=== PATIENT | female | born 2000 | race Caucasian/White ===

== ENCOUNTER → 2023-05-24 16:23 | Outpatient (REF) | payer OTHER, SELFPAY | LOC: PNTC 16:23 | PROVIDERS: ATTENDING PHYSICIAN Obstetrics & Gynecology | DX: O99.210 Obesity complicating pregnancy, unspecified trimester (principal); O98.519 Other viral diseases complicating pregnancy, unspecified trimester; U07.1 COVID-19 | CPT/HCPCS: 76811 ==

== ENCOUNTER → 2023-06-07 08:15 | Outpatient (REF) | payer OTHER, SELFPAY | LOC: PNTC 08:15 | PROVIDERS: ATTENDING PHYSICIAN Obstetrics & Gynecology | DX: O28.3 Abnormal ultrasonic finding on antenatal screening of mother (principal) | CPT/HCPCS: 76815 ==

== ENCOUNTER → 2023-07-05 15:21 | Outpatient (REF) | payer OTHER, SELFPAY | LOC: PNTC 15:21 | PROVIDERS: ATTENDING PHYSICIAN Obstetrics & Gynecology | DX: O98.519 Other viral diseases complicating pregnancy, unspecified trimester (principal); O99.210 Obesity complicating pregnancy, unspecified trimester | CPT/HCPCS: 76816 ==

== ENCOUNTER → 2023-08-16 16:21 | Outpatient (REF) | payer OTHER, SELFPAY | LOC: PNTC 16:21 | PROVIDERS: ATTENDING PHYSICIAN Obstetrics & Gynecology | DX: O99.210 Obesity complicating pregnancy, unspecified trimester (principal); O98.519 Other viral diseases complicating pregnancy, unspecified trimester; U07.1 COVID-19 | CPT/HCPCS: 76816 ==

== ENCOUNTER 2023-10-05 06:29 | Inpatient (IN) | payer OTHER, SELFPAY ==
[2023-10-05 06:51] VITALS: BP 122/79; BMI 38.3
[2023-10-05 07:12] LABS: Hematocrit 32.8 % (37.0-47.0); Hemoglobin 10.7 g/dL (12.0-16.0); Mean Corp Hgb Conc. 32.6 g/dL (33.0-37.0); Mean Corpuscular Hgb 24.1 pg (27.0-31.0); Mean Corpuscular Volume 73.9 fL (81.0-99.0); Mean Platelet Volume 9.7 fL (7.4-10.4); Platelet Count 186 10^3/uL (130-400); Red Blood Cell Count 4.44 10^6/uL (4.20-5.40); Red Cell Dist. Width 14.4 % (11.5-14.5); White Blood Cell Count 9.5 10^3/uL (4.8-10.8)
[2023-10-05] MEDS: TYLENOL 1000 MG PO (07:37)
[2023-10-05] MEDS: ANCEF 10 IV (07:38)
[2023-10-05] MEDS: BICITRA 30 ML PO (07:39)
[2023-10-05] MEDS: LR 1000 IV (07:39)
[2023-10-05] MEDS: PITOCIN 30 UNITS/NSS 500 ML IV (10:40)
[2023-10-05] MEDS: BENADRYL 25 MG PO (10:40)
[2023-10-05] MEDS: BENADRYL 25 MG IV (11:33)
[2023-10-05] MEDS: TORADOL 15 MG IV ×2 (13:42→20:13)
[2023-10-06] MEDS: TORADOL 15 MG IV ×4 (02:08→20:12)
[2023-10-06 05:07] LABS: Hematocrit 30.1 % (37.0-47.0); Hemoglobin 9.5 g/dL (12.0-16.0); Mean Corp Hgb Conc. 31.6 g/dL (33.0-37.0); Mean Corpuscular Hgb 23.8 pg (27.0-31.0); Mean Corpuscular Volume 75.4 fL (81.0-99.0); Platelet Count 168 10^3/uL (130-400); Red Blood Cell Count 3.99 10^6/uL (4.20-5.40); Red Cell Dist. Width 14.2 % (11.5-14.5); White Blood Cell Count 14.1 10^3/uL (4.8-10.8)
[2023-10-06] MEDS: PRENATAL PLUS 1 TABLET PO (08:03)
--- NOTE | 2023-10-06 09:06 | W.PN.ANS.POP ---
Anesthesia Post Operative
- Anesthesia Post Op Note
Vital Signs Stable-See Nursing Note: Yes
Airway Patent: Yes
Adequate Pain Control: Yes
Change in Mental Status: No
Current Postoperative Nausea & Vomiting: No
Anesthesia Complications: No
General Anesthetic Recall: No
Unplanned Admission: No
Post Op Hydration Adequate: Yes
[2023-10-07] MEDS: TYLENOL 650 MG PO ×3 (01:06→09:37)
[2023-10-07] MEDS: PRENATAL PLUS 1 TABLET PO (08:17)
[2023-10-07] MEDS: SENOKOT-S 1 TABLET PO (09:37)
[2023-10-07] MEDS: FEOSOL 325 MG PO (13:00)
[2023-10-07] MEDS: MOTRIN 600 MG PO ×2 (13:00→19:47)
[2023-10-08] MEDS: MOTRIN 600 MG PO (02:04)
[2023-10-08] MEDS: MYLICON 80 MG PO (08:50)
[2023-10-08] MEDS: FEOSOL 325 MG PO (08:50)
[2023-10-08] MEDS: PRENATAL PLUS 1 TABLET PO (08:50)
--- NOTE | 2023-10-08 08:56 | W.DS.TRANS ---
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
-
Discharge Instructions:
Discharge Diagnosis/Procedures section
Instructions:
Stand-Alone Forms:
Changes to Home Medications: No
Discharge Medications:
DC Medications w/original date entered in [facility]
prenat.vits,don,ytf-evvv-igkvg 1 tab PO DAILY Supplement 10/05/23
acetaminophen 325 mg tablet 650 mg (2 x 325 mg) PO Q4HPRN PRN mild pain #0 tabs 10/08/23
ferrous sulfate 325 mg (65 mg iron) tablet (FeroSul) 325 mg PO DAILY #0 tabs 10/08/23
ibuprofen 600 mg tablet 600 mg PO Q6HPRN PRN cramps #30 tabs 10/08/23
sennosides 8.6 mg-docusate sodium 50 mg tablet (Stool Softener-Stimulant Laxative) 1 tab PO DAILYPRN PRN constipation #0 tabs 10/08/23
simethicone 80 mg chewable tablet 80 mg PO TIDPRN PRN flatulence #0 tabs 10/08/23
Home Medication Changes
Pending Results: Yes
Additional Pending Results:
pathology on placenta
Total time spent discharging patient (in min): 20
[2023-10-09 11:12] LABS: Syphilis/T. pallidum Ab Reflex Negative (Negative)
== END 2023-10-08 12:52 | disposition home or self-care (01) | DRG 788 ==
LOC: LDRP 06:29
PROVIDERS: ADMITTING PHYSICIAN Obstetrics & Gynecology; FAMILY PHYSICIAN Family Medicine
PROC: 10D00Z1 Extraction of Products of Conception, Low, Open Approach (ICD-10-PCS; 2023-10-05)
PROC: 6A550ZT Pheresis of Cord Blood Stem Cells, Single (ICD-10-PCS; 2023-10-05)
DX: O32.1XX0 Maternal care for breech presentation, not applicable or unspecified (principal); Z3A.39 39 weeks gestation of pregnancy; Z37.0 Single live birth; O69.81X0 Labor and delivery complicated by cord around neck, without compression, not applicable or unspecified; D56.0 Alpha thalassemia; O99.284 Endocrine, nutritional and metabolic diseases complicating childbirth; E04.1 Nontoxic single thyroid nodule; O90.81 Anemia of the puerperium; D64.9 Anemia, unspecified
CPT/HCPCS: 88307; 36415; 85027; 86780; 86850; 86900; 86901

== ENCOUNTER → 2024-10-14 07:20 | Outpatient (REF) | payer OTHER, SELFPAY | LOC: HWRCS 07:20 | PROVIDERS: ATTENDING PHYSICIAN Emergency Medicine | DX: Z86.39 Personal history of other endocrine, nutritional and metabolic disease (principal) | CPT/HCPCS: 76536 ==

== ENCOUNTER → 2024-11-04 08:58 | Outpatient (REF) | payer OTHER, SELFPAY | LOC: WDC 08:58 | PROVIDERS: ATTENDING PHYSICIAN Emergency Medicine | DX: N64.4 Mastodynia (principal) | CPT/HCPCS: 76642 ==